=== PATIENT | male | born 1965 | race Two or more races ===

== ENCOUNTER → 2020-05-07 | Outpatient (CLI) | payer OTHER | END | disposition home or self-care (01) | LOC: OFIC 805 13:45 | PROVIDERS: ATTEND Otolaryngology Otology & Neurotology | DX: H91.13 Presbycusis, bilateral (principal); H93.13 Tinnitus, bilateral ==

== ENCOUNTER → 2020-06-07 | Outpatient (CLI) | payer OTHER | END | disposition home or self-care (01) | LOC: OFIC 805 15:15 | PROVIDERS: ATTEND Otolaryngology Otology & Neurotology | DX: H91.13 Presbycusis, bilateral (principal); H93.13 Tinnitus, bilateral ==